=== PATIENT | female | born 1995 ===

== ENCOUNTER 2021-08-31 10:53 | Outpatient (CLI) | payer BC, OTHER | END 2021-08-31 10:54 | disposition home or self-care (01) | LOC: CSHLAB 10:53 | PROVIDERS: ATTEND Obstetrics & Gynecology | DX: Z01.812 Encounter for preprocedural laboratory examination (principal); Z20.822 Contact with and (suspected) exposure to COVID-19; N83.292 Other ovarian cyst, left side; Z53.9 Procedure and treatment not carried out, unspecified reason | CPT/HCPCS: 84703; 85027; 86850; 86900; 86901; U0003; U0005 ==

== ENCOUNTER 2021-09-05 08:25 | Day surgery (SDC) | payer BC, OTHER ==
[2021-08-30 14:17] VITALS: BMI 43.4
[2021-08-31 13:04] LABS: Hemoglobin 12.3 g/dL (12.0-15.5); Mean Corpuscular HGB CONC 32.4 g/dL (32.0-36.0); Mean Corpuscular Hemoglobin 27.2 pg (27.0-33.0); Mean Corpuscular Volume 83.9 fl (81.6-98.3); Mean Platelet Volume 10.7 fl (7.4-10.4); Platelet Count 322 10x3/uL (150-450); RBC Distribution Width 13.8 % (11.5-14.5); Red Blood Cell (RBC) Count 4.53 10x6/uL (3.90-5.03); White Blood Cell (WBC) Count 10.5 10x3/uL (3.5-10.5)
[2021-08-31 13:18] LABS: BHCG - Serum Negative (NEGATIVE); Pregs Control Background? CLEAR/WHITE (CLR/WHITE); Pregs Control Bar Appear? YES (CONTROL BAR)
[2021-09-01 21:05] LABS: SARS-CoV-2 PCR by NAA Not Detected (NotDetected)
[2021-09-05] MEDS ORDERED: Lidocaine 1% MPF 2 ML VIAL ONE (08:41)
[2021-09-05] MEDS ORDERED: PROPOFOL 20 ML ONE (09:53)
[2021-09-05] MEDS ORDERED: Fentanyl 100 MCG/2 ML VIAL ONE ×2 (09:53→12:04)
[2021-09-05] MEDS ORDERED: Lidocaine 2% PF 5 ML VIAL ONE (09:55)
[2021-09-05] MEDS ORDERED: Ondansetron PF 4 MG/2 ML Vial ONE (09:55)
[2021-09-05] MEDS ORDERED: Rocuronium Bromide 10 MG/ML (10ML VIAL) ONE (09:56)
[2021-09-05] MEDS ORDERED: Dexamethasone 20 MG/5 ML VIAL ONE (09:56)
[2021-09-05] MEDS ORDERED: Bupivacaine HCl 0.5%/Epinephrine 1:200,000/PF 30 ml Vial ONE (10:00)
[2021-09-05] MEDS ORDERED: Ketorolac Tromethamine 30 MG/ML VIAL ONE (11:58)
[2021-09-05] MEDS ORDERED: Glycopyrrolate 0.2 MG/ML 5 ML SYRINGE ONE (12:00)
== END 2021-09-05 14:45 | disposition home or self-care (01) ==
LOC: CSHSDC 08:25
PROVIDERS: ATTEND Obstetrics & Gynecology
PROC: 0U913ZZ Drainage of Left Ovary, Percutaneous Approach (ICD-10-PCS; principal; 2021-09-05)
DX: N83.292 Other ovarian cyst, left side (principal); K66.0 Peritoneal adhesions (postprocedural) (postinfection); E66.01 Morbid (severe) obesity due to excess calories; Z68.41 Body mass index [BMI] 40.0-44.9, adult; Z98.890 Other specified postprocedural states
CPT/HCPCS: 36415; 84703; 85027; 86850; 86900; 86901; J0690; J1100; J1885; J2001; J2405; J2704; J3010; U0003; U0005